=== PATIENT | female | born 1955 | race Caucasian/White ===

== ENCOUNTER 2022-04-02 13:29 | Emergency (ER) | payer OTHER ==
[2022-04-02] MEDS ORDERED: Ketorolac 30 MG/ML SDV IM ONE (13:46)
[2022-04-02] MEDS ORDERED: Cyclobenzaprine 10 MG Tab PO ONE (13:46)
== END 2022-04-02 14:38 | disposition home or self-care (01) ==
LOC: JP.ED 13:29
DX: S13.4XXA Sprain of ligaments of cervical spine, initial encounter (principal); M54.50 Low back pain, unspecified; G89.29 Other chronic pain; Z88.0 Allergy status to penicillin; Z88.8 Allergy status to other drugs, medicaments and biological substances; V89.2XXA Person injured in unspecified motor-vehicle accident, traffic, initial encounter
CPT/HCPCS: 96372; 99282; 99284; A9270-GY; J1885

== ENCOUNTER 2022-05-09 11:34 | Emergency (ER) | payer MEDICARE, OTHER ==
[2022-05-09] MEDS: fentaNYL 100 MCG/2 ML SDV IVPUSH ONE (11:55)
[2022-05-09] MEDS: Propofol 200 MG/20 ML SDV IVPUSH ONE (12:14)
== END 2022-05-09 13:30 | disposition home or self-care (01) ==
LOC: JP.ED 11:34
DX: S43.015A Anterior dislocation of left humerus, initial encounter (principal); S70.02XA Contusion of left hip, initial encounter; S70.12XA Contusion of left thigh, initial encounter; K21.9 Gastro-esophageal reflux disease without esophagitis; Z88.0 Allergy status to penicillin; Z88.8 Allergy status to other drugs, medicaments and biological substances; Z79.899 Other long term (current) drug therapy; W11.XXXA Fall on and from ladder, initial encounter
CPT/HCPCS: 23650; 73020; 73030; 99283; J2704; J3010